=== PATIENT | male | born 1985 | race Caucasian/White ===

== ENCOUNTER 2019-07-28 18:20 | Emergency (ER) | payer BC, SELFPAY ==
[2019-07-28 18:32] VITALS: BP 151/88; PULSE 113; RESP 18; TEMP 38.1; O2SAT 97
--- NOTE | 2019-07-28 18:39 | ED.URI ---
HPI - URI/Sore Throat General Chief Complaint: Upper Respiratory Infection Stated Complaint: fever/aches/pain Source: patient Mode of arrival: ambulatory Limitations: no limitations History of Present Illness HPI Narrative: Patient is a 34-year-old male who presents complaining of fever, chills, body aches and diarrhea x1 day. Patient reports others in his family are ill as well. Patient denies taking [id number] medications for body aches or fever at this time. Patient is here requesting flu swab. MD elicited complaint: fever Related Data Home Medications Medication Instructions Recorded Confirmed No Home Medications 07/28/19 07/28/19 Allergies Allergy/AdvReac Type Severity Reaction Status Date / Time No Known Allergies Allergy Mild Verified 07/28/19 18:37 Review of Systems Review of Systems: Narrative: CONSTITUTIONAL: Reports fever, chills, and sweats. EYES: Denies visual changes, redness, or discharge. ENT: Denies rhinorrhea, congestion, sore throat, or otalgia. CARDIOVASCULAR: Denies chest pain, palpitations, or edema. RESPIRATORY: Denies cough or dyspnea. GASTROINTESTINAL: Denies abdominal pain, nausea, vomiting, reports diarrhea. GENITOURINARY: Denies dysuria or hematuria. SKIN: Denies rash or itching. MUSCULOSKELETAL: Denies back pain, joint pain, or myalgia. NEUROLOGIC: Denies headache, numbness, dizziness, or weakness. PSYCHIATRIC: Denies anxiety or depression. [facility] Social History Social History (Updated 07/28/19 @ 18:54 by TIAN Resendez) Smoking status: Never smoker Alcohol intake: current Alcohol use details: Socially Substance use: never Exam Narrative: Exam Narrative: GENERAL: Well-appearing, well-nourished, and in no acute distress. HEAD: Normocephalic, atraumatic. EYES: EOMI. No redness or drainage. Conjunctiva are normal. ENT: Mucous membranes pink and moist. Nares clear. No rhinorrhea. TMs normal bilaterally. Throat normal. Uvula midline. NECK: AROM. Supple. No lymphadenopathy. CHEST: No respiratory distress. Clear to auscultation. HEART: Regular rate and rhythm. No murmur appreciated. Normal peripheral pulses. GI: Soft, nontender without rebound, or guarding. No distention. Bowel sounds normal in all quadrants. SKIN: Warm, dry, no rash. NEURO: No focal deficits. Alert and oriented x3. Gait steady. PSYCH: Normal affect. No signs of depression or anxiety. Course Vital Signs Vital signs: Vital Signs Temperature 38.1 C H 07/28/19 18:32 Pulse Rate 113 H 07/28/19 18:32 Respiratory Rate 18 07/28/19 18:32 Blood Pressure 151/88 H 07/28/19 18:32 Pulse Oximetry 97 07/28/19 18:32 Temperature 38.1 C H 07/28/19 18:32 Pulse Rate 113 H 07/28/19 18:32 Respiratory Rate 18 07/28/19 18:32 Blood Pressure 151/88 H 07/28/19 18:32 Pulse Oximetry 97 07/28/19 18:32 Reviewed. Patient has been instructed to follow-up with his PCP regarding his blood pressure. MDM - URI/Sore Throat MDM Narrative Medical decision making narrative: Patient most likely has viral illness. Influenza negative. Patient to increase fluids, use Tylenol or ibuprofen for body aches and fever. Patient to not return to work until fever free for 24 hours. Discussed plan of care with patient. Patient is stable for discharge home with outpatient follow-up care as needed. Differential Diagnosis Differential diagnosis: Likely upper respiratory infection and viral infection Critical Care Time Critical Care Time Critical Care Time: No Discharge Plan Discharge Clinical Impression: Viral infection Patient Disposition: Home, Self-Care Condition: Stable Instructions: Gastroenteritis (DC) Additional Instructions: Take Tylenol or ibuprofen for pain or fever. Good oral hydration is essential. Follow-up with your PCP in 3 to 5 days if symptoms persist. Your blood pressure was elevated above 120/80 today at [facility]. This puts you above the threshold for
--- NOTE | 2019-07-28 18:45 | PC.NURSE ---
c/o diarrhea that started yesterday. states he had four loose stools today, has not taken any over the counter medication for the diarrhea. States his child came home from school today with similar symptoms.
== END 2019-07-28 19:05 | disposition home or self-care (01) ==
PROVIDERS: Emergency Provider Nurse Practitioner; PCP Family Medicine Adolescent Medicine
DX: B34.9 Viral infection, unspecified (principal)
CPT/HCPCS: 87804; 99212; G0463